=== PATIENT | male | born 1985 | race Hispanic/Latino ===

== ENCOUNTER 2017-12-17 12:55 | Emergency (ER) | payer OTHER ==
[~2017-12-17] VITALS: Ht 185.4 cm; Wt 104.3 kg
--- OUTSIDE RECORDS SUMMARY | 2017-12-17 12:57 | XMS REPORT ---
Author [facility] Address Unknown Phone Unavailable Care Team Providers Care Last Repairer Helper Name Role Phone MARCO JOHNSTON Unavailable Unavailable Problems This patient has no known problems. Allergies, Adverse Reactions, Alerts This patient has no known allergies or adverse reactions. Medications This patient has no known medications. Results Test Description Test Time Test Comments Text Results Atomic Results Result Comments CT BRAIN WO [place] [address] Patient Name: MARLINE WHYTE MR #: [id number] : 1985 Age/Sex: 31/M Req # : [id number] [facility] Physician: Ordered by: MARCO JOHNSTON MD Report #: [id number] Location: ER Room/Bed: Procedure: [id number] CT/CT BRAIN WO Exam Date: 07/11/17 Exam Time: 1006 REPORT STATUS: Signed History:Episodic diplopia, Dizziness Comparison studies: None Technique: Axial images were obtained from the skull base to the vertex. Coronal and sagittal reconstructions obtained from the axial data. Findings: Scalp/skull: No abnormalities. No fractures, blastic or lytic lesions. Extra-axial spaces: No masses. No fluid collections. Brain sulci: Appropriate for age. Ventricles: Normal in size and configuration. No hydrocephalus. Parenchyma: No abnormal densities. No masses, hemorrhage, acute or chronic cortical vascular insults. Sellar/suprasellar region: No abnormalities Craniocervical junction: Patent foramen magnum. No Chiari one malformation. IMPRESSION: No abnormalities . Signed by: DR Simba Delacruz M.D. on 2016 10:37 AM Dictated By: SIMBA GLASER MD [id number] Transcribed By: PARVIN on 07/11/17 1037 COPY TO: MARCO JOHNSTON MD CHEST 2 VIEWS [place] [address] Patient Name: MARLINE WHYTE MR #: [id number] : 1985 Age/Sex: 31/M Req # : [id number] Adm Physician: Ordered by: MARCO JOHNSTON MD Report #: [id number] Location: ER Room/Bed: Procedure: [id number] DX/CHEST 2 VIEWS Exam Date: 07/11/17 Exam Time: 0815 REPORT STATUS: Signed PROCEDURE: X-RAY CHEST, TWO VIEWS COMPARISON: 06/29/2016 INDICATIONS: CHEST PAIN FINDINGS: The lungs are well-inflated. No focal airspace consolidation, pleural effusion, or pneumothorax. Cardiomediastinal contour and pulmonary vasculature are within normal limits. No acute osseous abnormality. CONCLUSION: No acute thoracic abnormality. Dictated by: Edward Richardson M.D. on 2016 at 9:08 Electronically approved by: Edward Richardson M.D. on 07/11/2017 at 9:08 Dictated By: EDWARD RICHARDSON MD 0908 Transcribed By: TIMOTEO on 07/11/17 0908 COPY TO: MARCO JOHNSTON MD
[2017-12-17 14:06] LABS: BASOPHILS % 0.6 % (0.0-1.0); EOSINOPHILS # (AUTO) 0.3 (0.0-0.4); EOSINOPHILS % 4.9 % (0.0-6.0); HEMATOCRIT 47.5 % (38.2-49.6); HEMOGLOBIN 16.3 g/dL (14.0-18.0); LYMPHOCYTES # (AUTO) 1.6 (1.0-3.2); LYMPHOCYTES % 24.6 % (18.0-39.1); MEAN CORPUSCULAR HEMOGLOBIN 31.2 pg (28-32); MEAN CORPUSCULAR HGB CONC 34.3 g/dL (31-35); MONOCYTES # (AUTO) 0.4 (0.2-0.8); MONOCYTES % 6.3 % (4.4-11.3); PLATELET COUNT 196 x10e3/uL (140-360); RED BLOOD COUNT 5.22 x10e6/uL (4.3-5.7); RED CELL DISTRIBUTION WIDTH 12.8 % (11.7-14.4)
[2017-12-17 14:24] LABS: ALANINE AMINOTRANSFERASE 105 IU/L (0-55); ALKALINE PHOSPHATASE 68 IU/L (40-150); ANION GAP 13.2 mmol/L (8-16); BLOOD UREA NITROGEN 8 mg/dL (7-26); BUN/CREATININE RATIO 9 (6-25); CALCIUM 9.3 mg/dL (8.4-10.2); CARBON DIOXIDE 25 mmol/L (22-29); CHLORIDE 107 mmol/L (98-107); CREATININE, SERUM 0.86 mg/dL (0.72-1.25); EST GLOMERULAR FILTRATION RATE > 60 ML/MIN (60-); GLUCOSE 93 mg/dL (74-118); POTASSIUM 4.2 mmol/L (3.5-5.1); SODIUM 141 mmol/L (136-145)
[2017-12-17 14:56] LABS: BILIRUBIN,URINE NEGATIVE (NEGATIVE); COLOR,URINE YELLOW (YELLOW); KETONES,URINE NEGATIVE (NEGATIVE); LEUKOCYTE ESTERASE ,URINE NEGATIVE (NEGATIVE); NITRITE,URINE NEGATIVE (NEGATIVE); PROTEIN,URINE DIPSTICK NEGATIVE (NEGATIVE); URINE UROBILINOGEN 0.2 mg/dL (0.2 - 1)
[2017-12-17 14:57] LABS: CLARITY,URINE SL CLOUDY (CLEAR)
== END 2017-12-17 16:00 | disposition home or self-care (01) ==
LOC: ER 12:55
DX: R10.33 Periumbilical pain (principal); I10 Essential (primary) hypertension
CPT/HCPCS: 36415; 80053; 81001; 85025; 99283

== ENCOUNTER → 2017-12-28 | Day surgery (SDC) | payer OTHER ==
[2017-12-27 15:48] LABS: BASOPHILS % 0.5 % (0.0-1.0); EOSINOPHILS # (AUTO) 0.3 (0.0-0.4); EOSINOPHILS % 3.7 % (0.0-6.0); HEMATOCRIT 44.8 % (38.2-49.6); HEMOGLOBIN 15.6 g/dL (14.0-18.0); LYMPHOCYTES # (AUTO) 1.5 (1.0-3.2); MEAN CORPUSCULAR HEMOGLOBIN 31.1 pg (28-32); MEAN CORPUSCULAR HGB CONC 34.8 g/dL (31-35); MEAN CORPUSCULAR VOLUME 89.4 fL (81-99); MONOCYTES # (AUTO) 0.6 (0.2-0.8); MONOCYTES % 7.3 % (4.4-11.3); NEUTROPHILS # (AUTO) 5.7 (2.1-6.9); PLATELET COUNT 161 x10e3/uL (140-360); RED BLOOD COUNT 5.01 x10e6/uL (4.3-5.7); RED CELL DISTRIBUTION WIDTH 12.7 % (11.7-14.4)
[~2017-12-28] MED LIST: BUPIVACAINE 0.25%/EPI 30ML SDV INJ ONE; DEXAMETHASONE SOD PHOS INJ 4 MG/ML VIAL ONE; FENTANYL CITRATE/PF 100MCG/2 ML INJ ONE; FLECTOR1 EACH PO; GLYCOPYRROLATE INJ 1MG/ 5 ML SYR ONE; HYDROMORPHONE 1MG/1ML INJ ONE; LIDOCAINE HCL 2% LOCAL INJ 5 ML SDV VIAL INJ ONE; MIDAZOLAM HCL 2 MG/2 ML VIAL ONE; NEOSTIGMINE 5 MG/5ML SYR ONE; ONDANSETRON HCL INJ 2 MG/ML VIAL ONE; PROPOFOL IV EMULSION 10 MG/ML 20 ML VIAL ONE; ROCURONIUM BROMIDE 10 MG/ML 5ML VIAL ONE; SEVOFLURANE INHAL SOLN 250 ML PEN BTL ONE; TIZANIDINE HCL4 M1 PO; ULTRAM50 MG PO
--- OUTSIDE RECORDS SUMMARY | 2017-12-28 11:40 | XMS REPORT | Continuity of Care Document ---
Author Author [facility] Organization [facility] Address [address] [place] [address] Phone Unavailable Care Team Providers Care Web Services Developer Name Role Phone KATALINA RITCHIE PCP Insurance Providers Guarantor [employer] Address [address] [place] [address] Payer Aet Hmo Policy Number [id number] Subscriber's Name ZevDulce Tai Relationship 01 Group Number [id number] Group Name [facility] Effective Date 16 Advance Directives Directive Response Recorded Date/Time Does the patient have an advance directive? No 06/29/16 5:47pm If yes, is advance directive on file with [facility]? No 06/29/16 5:47pm If not on file with [facility] will patient provide a copy? No 12/17/17 1:26pm Do you have a Directive to Physician? No 12/17/17 1:26pm Do you have a Medical Power of Sugar Refiner? No 12/17/17 1:26pm Do you have an out of hospital Do Not Resuscitate Order? No 12/17/17 1:26pm Do you have any special needs we should be aware of? No 12/17/17 1:26pm Do you have a support person here with you today? Yes 12/17/17 1:26pm Did patient receive Notice of Privacy Practices? Yes 12/17/17 1:26pm Did patient receive patient rights and responsibilities? Yes 12/17/17 1:26pm Problems Medical Problem Onset Date Status Chest pain Unknown Acute Pharyngitis Unknown Acute Medications No known medications. Social History No social history information available. Hospital Discharge Instructions No hospital discharge instruction information available. Plan of Care Discharge Date 12/17/17 4:00pm Disposition HOME, SELF-CARE Condition at Discharge Stable Instructions/Education Provided Hiatal Hernia Forms Provided Work/School Excuse Prescriptions See Medication Section Referrals KATALINA RITCHIE Address: [address] [place] [address] [place] [id number] Functional Status No functional status information available. Allergies, Adverse Reactions, Alerts No known allergies. Immunizations No immunization information available. Vital Signs Acute Vital Signs Vital Response Date/Time Pulse Pulse Rate (adult) 71 bpm (60 - 90) 07/11/2017 11:49am Respiratory Rate 17 bpm (12 - 24) 07/11/2017 11:49am Blood Pressure 140/97 mm Hg 07/11/2017 11:49am Height 6 ft 1 in 12/17/2017 1:10pm Weight 230 lb 12/17/2017 1:10pm Body Mass Index 30.3 kg/m^2 12/17/2017 1:10pm Results Laboratory Results Test Name Result Units Flags Reference Collection Date/Time Result Date/ Time Comments Bedside Glucose 96 mg/dL 70-120 07/11/2017 8:30am 07/11/2017 8:39am Meter ID: [id number] B-Type Natriuretic Peptide < 5.0 pg/mL 0-100 07/11/2017 8:25am 2016 9:08am Creatine Kinase 292 IU/L H 30-200 07/11/2017 8:25am 07/11/2017 9:09am Creatine Kinase MB 3.10 ng/mL 0.00-5.00 07/11/2017 8:25am 07/11/2017 9: 09am Troponin I 0.001 ng/mL 0-0.300 07/11/2017 8:25am 07/11/2017 9:09am White Blood Count 6.35 x10e3/uL 4.8-10.8 12/17/2017 1:38pm 12/17/2017 2 :09pm Red Blood Count 5.22 x10e6/uL 4.3-5.7 12/17/2017 1:38pm 12/17/2017 2: 09pm Hemoglobin 16.3 g/dL 14.0-18.0 12/17/2017 1:38pm 12/17/2017 2:09pm Hematocrit 47.5 % 38.2-49.6 12/17/2017 1:38pm 12/17/2017 2:09pm Mean Corpuscular Volume 91.0 fL 81-99 12/17/2017 1:38pm 12/17/2017 2: 09pm Mean Corpuscular Hemoglobin 31.2 pg 28-32 12/17/2017 1:38pm 12/17/2017 2:09pm Mean Corpuscular Hemoglobin Concent 34.3 g/dL 31-35 12/17/2017 1:38pm 12/17/2017 2:09pm Red Cell Distribution Width 12.8 % 11.7-14.4 12/17/2017 1:38pm 2017 2:09pm Platelet Count 196 x10e3/uL 140-360 12/17/2017 1:38pm 12/17/2017 2: 09pm Neutrophils (%) (Auto) 63.0 % 38.7-80.0 12/17/2017 1:38pm 12/17/2017 2: 09pm Lymphocytes (%) (Auto) 24.6 % 18.0-39.1 12/17/2017 1:38pm 12/17/2017 2: 09pm Monocytes (%) (Auto) 6.3 % 4.4-11.3 12/17/2017 1:38pm 12/17/2017 2: 09pm Eosinophils (%) (Auto) 4.9 % 0.0-6.0 12/17/2017 1:38pm 12/17/2017 2: 09pm Basophils (%) (Auto) 0.6 % 0.0-1.0 12/17/2017 1:38pm 12/17/2017 2:09pm IM GRANULOCYTES % 0.6 % 0.0-1.0 12/17/2017 1:38pm 12/17/2017 2:09pm Neutrophils # (Auto) 4.0 2.1-6.9 12/17/2017 1:38pm 12/17/2017 2:09pm Lymphocytes # (Auto) 1.6 1.0-3.2 12/17/2017 1:38pm 12/17/2017 2:09pm Monocytes # (Auto) 0.4 0.2-0.8 12/17/2017 1:38pm 12/17/2017 2:09pm Eosinophils # (Auto) 0.3 0.0-0.4 12/17/2017 1:38pm 12/17/2017 2:09pm Basophils # (Auto) 0.0 0.0-0.1 12/17/2017 1:38pm 12/17/2017 2:09pm Absolute Immature Granulocyte (auto 0.04 x10e3/uL 0-0.1 12/17/2017 1: 38pm 12/17/2017 2:09pm Urine Color YELLOW YELLOW 12/17/2017 1:10pm 12/17/2017 2:57pm Urine Clarity SL CLOUDY H CLEAR 12/17/2017 1:10pm 12/17/2017 2:57pm Urine Specific Lynn 1.015 1.010-1.025 12/17/2017 1:10pm 2017 2:57pm Urine pH 8 H 5 - 7 12/17/2017 1:10pm 12/17/2017 2:57pm Urine Leukocyte Esterase NEGATIVE NEGATIVE 12/17/2017 1:10pm 2017 2:57pm Urine Nitrite NEGATIVE NEGATIVE 12/17/2017 1:10pm 12/17/2017 2:57pm Urine Protein NEGATIVE NEGATIVE 12/17/2017 1:10pm 12/17/2017 2:57pm Urine Glucose (UA) NEGATIVE NEGATIVE 12/17/2017 1:10pm 12/17/2017 2: 57pm Urine Ketones NEGATIVE NEGATIVE 12/17/2017 1:10pm 12/17/2017 2:57pm Urine Urobilinogen 0.2 mg/dL 0.2 - 1 12/17/2017 1:10pm 12/17/2017 2: 57pm Urine Bilirubin NEGATIVE NEGATIVE 12/17/2017 1:10pm 12/17/2017 2: 57pm Urine Blood NEGATIVE NEGATIVE 12/17/2017 1:10pm 12/17/2017 2:57pm Urine WBC NONE /HPF 0-5 12/17/2017 1:10pm 12/17/2017 3:09pm Urine RBC NONE /HPF 0-5 12/17/2017 1:10pm 12/17/2017 3:09pm Urine Bacteria NONE /HPF NONE 12/17/2017 1:10pm 12/17/2017 3:09pm Urine Epithelial Cells NONE /LPF NONE 12/17/2017 1:1012/17/2017 3: 09pm Sodium Level 141 mmol/L 136-145 12/17/2017 1:38pm 12/17/2017 2:25pm Potassium Level 4.2 mmol/L 3.5-5.1 12/17/2017 1:38pm 12/17/2017 2:25pm Chloride Level 107 mmol/L 98-107 12/17/2017 1:38pm 12/17/2017 2:25pm Carbon Dioxide Level 25 mmol/L 22-29 12/17/2017 1:38pm 12/17/2017 2: 25pm Anion Gap 13.2 mmol/L 8-16 12/17/2017 1:38pm 12/17/2017 2:25pm Blood Urea Nitrogen 8 mg/dL 7-26 12/17/2017 1:38pm 12/17/2017 2:25pm Creatinine 0.86 mg/dL 0.72-1.25 12/17/2017 1:38pm 12/17/2017 2:25pm BUN/Creatinine Ratio 9 6-25 12/17/2017 1:38pm 12/17/2017 2:25pm Estimat Glomerular Filtration Rate > 60 ML/MIN 60- 12/17/2017 1:38pm 2:25pm Ranges were taken from the National Kidney Disease Education Program and the National Kid[employer] literature. Reference ranges: 60 or greater: Normal 16-59 (for 3 consecutive months): Chronic kidney disease 15 or less: Kidney failure Glucose Level 93 mg/dL 74-118 12/17/2017 1:38pm 12/17/2017 2:25pm Calcium Level 9.3 mg/dL 8.4-10.2 12/17/2017 1:38pm 12/17/2017 2:25pm Total Bilirubin 0.7 mg/dL 0.2-1.2 12/17/2017 1:38pm 12/17/2017 2:25pm Aspartate Amino Transf (AST/SGOT) 67 IU/L H 5-34 12/17/2017 1:38pm 12/17 2:25pm Alanine Aminotransferase (ALT/SGPT) 105 IU/L H 0-55 12/17/2017 1:38pm 2:25pm Total Protein 7.9 g/dL 6.5-8.1 12/17/2017 1:38pm 12/17/2017 2:25pm Albumin 4.0 g/dL 3.5-5.0 12/17/2017 1:38pm 12/17/2017 2:25pm Globulin 3.9 g/dL H 2.3-3.5 12/17/2017 1:38pm 12/17/2017 2:25pm Albumin/Globulin Ratio 1.0 0.8-2.0 12/17/2017 1:38pm 12/17/2017 2: 25pm Alkaline Phosphatase 68 IU/L 40-150 12/17/2017 1:38pm 12/17/2017 2: 25pm Procedures Procedure Status Date Provider(s) X-ray of chest, two views Active 07/11/17 MARCO JOHNSTON MD Computed tomography of brain without radiopaque contrast Active 07/11/17 MARCO JOHNSTON MD Encounters Encounter Location Arrival/Admit Date Discharge/Depart Date Attending Provider Departed Emergency Room [facility] 12/17/17 12:55pm 12/17 4:00pm MARCO JOHNSTON MD Departed Emergency Room [facility] 07/11/17 8:14am 11:50am MARCO JOHNSTON MD
--- NOTE | 2017-12-28 18:07 | Operative Report ---
DATE OF PROCEDURE: December 28, 2017 PREOPERATIVE DIAGNOSIS: Incarcerated umbilical hernia. POSTOPERATIVE DIAGNOSIS: Incarcerated umbilical hernia. OPERATION PERFORMED: Repair of incarcerated umbilical hernia with Ventralex patch. OFFICE SERVICES COORDINATOR: SHARRON Calderon. ANESTHESIA: General. COMPLICATIONS: None. ESTIMATED BLOOD LOSS: Minimal. DESCRIPTION OF PROCEDURE: With the patient lying in bed in the supine position under good general endotracheal anesthesia, the abdomen was prepped with Betadine solution and draped in the usual manner. A semilunar subumbilical incision was made. Was carried down through the subcutaneous tissue down to the midline fascia. The fascia was then dissected circumferentially and the hernia sac was then from the umbilicus. The hernia sac was opened. Contained within the hernia sac was some preperitoneal fat, a piece of which was incarcerated but appeared to have twisted and was partially necrotic and this was resected. After this was done, the whole area was inspected for bleeding and there was none and a medium-sized Ventralex patch was placed intra-abdominally and the defect was then closed transversely using interrupted sutures of 0 Ethibond anchoring the mesh on the way out. The whole area was thoroughly irrigated. Perfect hemostasis was ascertained. The fascia was then infiltrated with 1/4 percent Marcaine. The umbilicus was then tacked back down to the midline fascia with 3-0 Vicryl. The subcutaneous tissue was approximated with 3-0 Vicryl and the skin was closed with interrupted vertical mattress sutures of 3-0 silk. Dressing was applied. The sponge, lap and needle count was correct. Patient tolerated the procedure well and returned to the recovery room in stable condition. Job#: [id number]
== END | disposition home or self-care (01) ==
LOC: OR 11:38
PROVIDERS: ATTEND Surgery
DX: K42.0 Umbilical hernia with obstruction, without gangrene (principal); M54.9 Dorsalgia, unspecified; R06.02 Shortness of breath; F17.210 Nicotine dependence, cigarettes, uncomplicated; Z01.810 Encounter for preprocedural cardiovascular examination; Z01.812 Encounter for preprocedural laboratory examination; Z68.42 Body mass index [BMI] 45.0-49.9, adult
CPT/HCPCS: 36415; 49587; 85025; 93005; C1781; J1100; J1170; J2001; J2250; J2405

== ENCOUNTER 2018-10-15 12:47 | Emergency (ER) | payer OTHER ==
[~2018-10-15] VITALS: Ht 185.4 cm; Wt 104.3 kg
[~2018-10-15 12:47] MED LIST changes: -BUPIVACAINE 0.25%/EPI 30ML SDV INJ ONE; -DEXAMETHASONE SOD PHOS INJ 4 MG/ML VIAL ONE; -FENTANYL CITRATE/PF 100MCG/2 ML INJ ONE; -GLYCOPYRROLATE INJ 1MG/ 5 ML SYR ONE; -HYDROMORPHONE 1MG/1ML INJ ONE; -LIDOCAINE HCL 2% LOCAL INJ 5 ML SDV VIAL INJ ONE; -MIDAZOLAM HCL 2 MG/2 ML VIAL ONE; -NEOSTIGMINE 5 MG/5ML SYR ONE; -ONDANSETRON HCL INJ 2 MG/ML VIAL ONE; -PROPOFOL IV EMULSION 10 MG/ML 20 ML VIAL ONE; -ROCURONIUM BROMIDE 10 MG/ML 5ML VIAL ONE; -SEVOFLURANE INHAL SOLN 250 ML PEN BTL ONE
[2018-10-15] MEDS ORDERED: ASPIRIN 81 MG CHEW TAB PO ONE (13:15)
[2018-10-15 13:18] LABS: BASOPHILS % 0.3 % (0.0-1.0); EOSINOPHILS # (AUTO) 0.2 (0.0-0.4); EOSINOPHILS % 3.2 % (0.0-6.0); HEMATOCRIT 46.2 % (38.2-49.6); LYMPHOCYTES # (AUTO) 1.3 (1.0-3.2); LYMPHOCYTES % 20.4 % (18.0-39.1); MEAN CORPUSCULAR HEMOGLOBIN 30.9 pg (28-32); MEAN CORPUSCULAR HGB CONC 34.6 g/dL (31-35); MEAN CORPUSCULAR VOLUME 89.4 fL (81-99); MONOCYTES # (AUTO) 0.5 (0.2-0.8); NEUTROPHILS # (AUTO) 4.5 (2.1-6.9); NEUTROPHILS % 68.9 % (38.7-80.0); PLATELET COUNT 179 x10e3/uL (140-360); RED BLOOD COUNT 5.17 x10e6/uL (4.3-5.7); RED CELL DISTRIBUTION WIDTH 12.5 % (11.7-14.4)
[2018-10-15 13:29] LABS: INR 0.87; PROTHROMBIN TIME 12.7 seconds (11.9-14.5)
[2018-10-15 13:30] LABS: PARTIAL THROMBOPLASTIN TIME 27.3 seconds (23.8-35.5)
[2018-10-15 13:36] LABS: ALANINE AMINOTRANSFERASE 92 IU/L (0-55); ALKALINE PHOSPHATASE 53 IU/L (40-150); ANION GAP 13.9 mmol/L (8-16); BLOOD UREA NITROGEN 11 mg/dL (7-26); BUN/CREATININE RATIO 12 (6-25); CALCIUM 9.4 mg/dL (8.4-10.2); CARBON DIOXIDE 24 mmol/L (22-29); CHLORIDE 105 mmol/L (98-107); CREATINE KINASE 172 IU/L (30-200); CREATININE, SERUM 0.93 mg/dL (0.72-1.25); EST GLOMERULAR FILTRATION RATE > 60 ML/MIN (60-); GLUCOSE 102 mg/dL (74-118); POTASSIUM 3.9 mmol/L (3.5-5.1); SODIUM 139 mmol/L (136-145)
--- NOTE | 2018-10-15 14:34 | Diagnostic Imaging Report ---
EXAMINATION: CHEST SINGLE (NOT PORTABLE) INDICATION: ^CHEST PAIN ^[id number] ^1350 ^Y COMPARISON: 07/11/2017 FINDINGS: AP view TUBES and LINES: None. LUNGS: Lungs are well inflated. There is no evidence of pneumonia or pulmonary edema. PLEURA: No pleural effusion or pneumothorax. HEART AND MEDIASTINUM: The cardiomediastinal silhouette is unremarkable. BONES AND SOFT TISSUES: No acute osseous lesion. Soft tissues are unremarkable. UPPER ABDOMEN: No free air under the diaphragm. IMPRESSION: No acute thoracic abnormality. Signed by: Dr. Ángel Ch MD on 10/15/2018 2:31 PM
[2018-10-15] MEDS ORDERED: LOSARTAN POTASSIUM 100 MG TAB PO ONE (16:45)
[2018-10-15] MEDS ORDERED: HYDROCHLOROTHIAZIDE 25 MG TAB PO ONE (16:45)
[2018-10-15 17:48] VITALS: BP_SYST 155
== END 2018-10-15 17:52 | disposition home or self-care (01) ==
LOC: ER 12:47
DX: R07.89 Other chest pain (principal); I10 Essential (primary) hypertension
CPT/HCPCS: 36415; 71045; 80053; 82550; 82553; 83880; 84484; 85025; 85610; 85730; 93005; 99284

== ENCOUNTER 2022-04-27 10:40 | Emergency (ER) | payer OTHER ==
[~2022-04-27] VITALS: Ht 185.4 cm; Wt 104.3 kg
[2022-04-27] MEDS ORDERED: ASPIRIN 81 MG CHEW TAB PO ONE (11:00)
[2022-04-27 11:10] LABS: BASOPHILS % 0.8 % (0.0-1.0); EOSINOPHILS # (AUTO) 0.3 (0.0-0.4); EOSINOPHILS % 5.6 % (0.0-6.0); HEMATOCRIT 50.7 % (38.2-49.6); LYMPHOCYTES # (AUTO) 1.2 (1.0-3.2); LYMPHOCYTES % 23.5 % (18.0-39.1); MEAN CORPUSCULAR HEMOGLOBIN 30.9 pg (28-32); MEAN CORPUSCULAR HGB CONC 33.5 g/dL (31-35); MEAN CORPUSCULAR VOLUME 92.2 fL (81-99); MONOCYTES # (AUTO) 0.4 (0.2-0.8); MONOCYTES % 7.6 % (4.4-11.3); NEUTROPHILS # (AUTO) 3.1 (2.1-6.9); NEUTROPHILS % 62.3 % (38.7-80.0); PLATELET COUNT 156 x10e3/uL (140-360); RED CELL DISTRIBUTION WIDTH 14.6 % (11.7-14.4)
[2022-04-27 11:41] LABS: LIPASE 40 U/L (8-78)
[2022-04-27 11:45] LABS: ALBUMIN 3.6 g/dL (3.5-5.0); ALBUMIN/GLOBULIN RATIO 0.9 (0.8-2.0); CALCIUM 7.9 mg/dL (8.4-10.2); CREATININE, SERUM 0.91 mg/dL (0.72-1.25)
[2022-04-27 13:23] VITALS: BP 129/94
== END 2022-04-27 13:26 | disposition home or self-care (01) ==
LOC: ER 10:46
DX: R07.89 Other chest pain (principal); R06.02 Shortness of breath; M54.50 Low back pain, unspecified; I10 Essential (primary) hypertension; R94.31 Abnormal electrocardiogram [ECG] [EKG]
CPT/HCPCS: 36415; 71045; 80053; 83690; 84484; 85025; 93005; 99284

== ENCOUNTER 2022-10-27 11:42 | Inpatient (IN) | payer SELFPAY ==
[~2022-10-27] VITALS: Ht 185.4 cm; Wt 179.2 kg
[2022-10-27 12:15] LABS: BASOPHILS % 0.1 % (0.0-1.0); EOSINOPHILS % 0.2 % (0.0-6.0); HEMOGLOBIN 14.3 g/dL (14.0-18.0); LYMPHOCYTES # (AUTO) 0.8 (1.0-3.2); LYMPHOCYTES % 8.8 % (18.0-39.1); MEAN CORPUSCULAR HEMOGLOBIN 32.3 pg (28-32); MEAN CORPUSCULAR HGB CONC 32.5 g/dL (31-35); MEAN CORPUSCULAR VOLUME 99.3 fL (81-99); MONOCYTES # (AUTO) 0.6 (0.2-0.8); MONOCYTES % 6.1 % (4.4-11.3); NEUTROPHILS # (AUTO) 7.6 (2.1-6.9); NEUTROPHILS % 84.4 % (38.7-80.0); PLATELET COUNT 141 x10e3/uL (140-360); RED BLOOD COUNT 4.43 x10e6/uL (4.3-5.7); RED CELL DISTRIBUTION WIDTH 12.9 % (11.7-14.4)
[2022-10-27] MEDS ORDERED: SODIUM CHLORIDE 0.9% 1000ML 1,000 ML IV ONE ×2 (12:15)
[2022-10-27 12:26] LABS: INR 1.13; PROTHROMBIN TIME 14.7 seconds (11.9-14.5)
[2022-10-27] MEDS ORDERED: ONDANSETRON HCL INJ 2MG/ML 2ML 2 MG/ML VIAL IV PRN ×2 (12:30→15:15)
[2022-10-27] MEDS ORDERED: PIPERACILLIN/TAZOBACTAM 4.5 GM in SODIUM CHLORIDE 0.9% 100 ML IV ONE (12:30)
[2022-10-27] MEDS ORDERED: ACETAMINOPHEN 325 MG TAB PO ONE (12:30)
[2022-10-27] MEDS ORDERED: Morphine 4mg INJECTION 4 MG/ML INJ IV ONE (12:30)
[2022-10-27 12:33] LABS: ALBUMIN 3.1 g/dL (3.5-5.0); ALBUMIN/GLOBULIN RATIO 0.8 (0.8-2.0); ANION GAP 14.5 mmol/L (8-16); CALCIUM 8.3 mg/dL (8.4-10.2); CREATININE, SERUM 0.83 mg/dL (0.72-1.25); POTASSIUM 3.5 mmol/L (3.5-5.1)
[2022-10-27] MEDS ORDERED: IOPAMIDOL 370 MG/ML 100 ML INFUS..BTL INJ ONE (13:05)
[2022-10-27 13:40] LABS: COLOR,URINE ORANGE (YELLOW)
[2022-10-27 13:41] LABS: CLARITY,URINE CLEAR (CLEAR); KETONES,URINE TRACE (NEGATIVE); LEUKOCYTE ESTERASE ,URINE NEGATIVE (NEGATIVE); NITRITE,URINE NEGATIVE (NEGATIVE); PROTEIN,URINE DIPSTICK 1+ (NEGATIVE)
[2022-10-27 13:42] LABS: URINE UROBILINOGEN >=8 mg/dL (0.2 - 1)
[2022-10-27 13:43] LABS: BACTERIA,URINE MODERATE /HPF; EPITHELIAL CELLS,URINE FEW /LPF; RBC,URINE 0-5 /HPF (0-5); WBC,URINE (MAN) 0-5 /HPF (0-5)
[2022-10-27 13:44] LABS: MUCUS,URINE FEW (RARE)
[2022-10-27] MEDS: Morphine 4mg INJECTION 4 MG/ML INJ IV PRN ×2 (15:40→22:27)
[2022-10-27 16:27] VITALS: BP 155/96
[2022-10-27 16:40] VITALS: BP 155/96
[2022-10-27] MEDS: SODIUM CHLORIDE 0.9% 1000ML 1,000 ML IV SCH (16:52)
[2022-10-27] MEDS: ACETAMINOPHEN 325 MG TAB PO PRN (17:20)
[2022-10-27] MEDS ORDERED: FENTANYL CITRATE/PF 100MCG/2 ML INJ ONE (18:14)
[2022-10-27] MEDS ORDERED: MIDAZOLAM HCL 2 MG/2 ML VIAL ONE (18:14)
[2022-10-27] MEDS ORDERED: ATROPINE SULFATE 1 MG/ML VIAL ONE (19:34)
[2022-10-27] MEDS ORDERED: POVIDONE IODINE 0.05% 0.05 % ML PO ONE (19:34)
[2022-10-27] MEDS ORDERED: ROCURONIUM BROMIDE 10 MG/ML 5ML VIAL IV ONE (19:34)
[2022-10-27] MEDS ORDERED: NEOSTIGMINE 1 MG/ML 10ML VIAL ONE (19:34)
[2022-10-27] MEDS ORDERED: SUGAMMADEX SODIUM 200 MG/2 ML VIAL IV ONE (19:34)
[2022-10-27] MEDS ORDERED: KETOROLAC TROMETHAMINE 30 MG/ML VIAL ONE (19:34)
[2022-10-27] MEDS ORDERED: SEVOFLURANE INHAL SOLN 250 ML PEN BTL ONE (19:34)
[2022-10-27] MEDS ORDERED: DEXAMETHASONE SOD PHOS INJ 4 MG/ML SDV ONE (19:34)
[2022-10-27] MEDS ORDERED: PROPOFOL IV EMULSION 10 MG/ML 20 ML VIAL ONE (19:34)
[2022-10-27] MEDS ORDERED: ONDANSETRON HCL INJ 2MG/ML 2ML 2 MG/ML VIAL ONE (19:34)
[2022-10-27] MEDS ORDERED: SUCCINYLCHOLINE CHLORIDE 20 MG/ML 10ML VIAL ONE (19:34)
[2022-10-27] MEDS: LORAZEPAM INJ 2 MG/ML VIAL IV PRN (19:58)
[2022-10-27] MEDS: KETOROLAC TROMETHAMINE 30 MG/ML VIAL IV PRN (19:58)
[2022-10-27 20:00] VITALS: BP 104/65
[2022-10-27 23:39] VITALS: BP 104/65
[2022-10-28] VITALS (7 sets, daily range): BP systolic 100–163; BP diastolic 57–85
[2022-10-28] MEDS: SODIUM CHLORIDE 0.9% 1000ML 1,000 ML IV SCH (00:39)
[2022-10-28] MEDS: ACETAMINOPHEN 325 MG TAB PO PRN (00:44)
[2022-10-28 05:54] LABS: BASOPHILS % 0.3 % (0.0-1.0); EOSINOPHILS % 0.1 % (0.0-6.0); HEMATOCRIT 39.3 % (38.2-49.6); HEMOGLOBIN 12.5 g/dL (14.0-18.0); LYMPHOCYTES # (AUTO) 0.7 (1.0-3.2); LYMPHOCYTES % 10.1 % (18.0-39.1); MEAN CORPUSCULAR HEMOGLOBIN 32.4 pg (28-32); MEAN CORPUSCULAR HGB CONC 31.8 g/dL (31-35); MEAN CORPUSCULAR VOLUME 101.8 fL (81-99); MONOCYTES # (AUTO) 0.6 (0.2-0.8); NEUTROPHILS # (AUTO) 5.7 (2.1-6.9); NEUTROPHILS % 80.8 % (38.7-80.0); PLATELET COUNT 118 x10e3/uL (140-360); RED BLOOD COUNT 3.86 x10e6/uL (4.3-5.7); RED CELL DISTRIBUTION WIDTH 13.2 % (11.7-14.4)
[2022-10-28] MEDS: Morphine 4mg INJECTION 4 MG/ML INJ IV PRN ×3 (06:01→18:30)
[2022-10-28 06:15] LABS: ALBUMIN 2.8 g/dL (3.5-5.0); ALBUMIN/GLOBULIN RATIO 0.7 (0.8-2.0); ANION GAP 13.4 mmol/L (8-16); CALCIUM 8.1 mg/dL (8.4-10.2); CREATININE, SERUM 0.94 mg/dL (0.72-1.25); POTASSIUM 3.4 mmol/L (3.5-5.1)
[2022-10-28] MEDS ORDERED: BUPIVACAINE HCL 0.5% INJ 30 ML VIAL INJ ONE (08:12)
[2022-10-28] MEDS ORDERED: ONDANSETRON HCL INJ 2MG/ML 2ML 2 MG/ML VIAL IV PRN (08:45)
[2022-10-28] MEDS ORDERED: ACETAMINOPHEN 325 MG TAB PO PRN (08:45)
[2022-10-28] MEDS ORDERED: SUGAMMADEX SODIUM 200 MG/2 ML VIAL IV ONE (08:51)
[2022-10-28] MEDS ORDERED: POTASSIUM CHLORIDE 10MEQ EA PO NR (11:45)
[2022-10-28] MEDS: KETOROLAC TROMETHAMINE 30 MG/ML VIAL IV PRN (16:30)
[2022-10-28] MEDS ORDERED: HYDROMORPHONE 1MG/1ML INJ IV STA (21:26)
[2022-10-28] MEDS: BENZONATATE 100 MG CAP PO PRN (22:00)
[2022-10-29] VITALS (8 sets, daily range): BP systolic 110–135; BP diastolic 65–93
[2022-10-29] MEDS ORDERED: SODIUM CHLORIDE 0.9% 250ML 250 ML ONE (00:18)
[2022-10-29] MEDS: HYDROMORPHONE 1MG/1ML INJ IV PRN ×3 (01:15→16:50)
[2022-10-29 05:45] LABS: BASOPHILS % 0.2 % (0.0-1.0); EOSINOPHILS % 0.5 % (0.0-6.0); HEMATOCRIT 39.7 % (38.2-49.6); HEMOGLOBIN 12.7 g/dL (14.0-18.0); LYMPHOCYTES # (AUTO) 0.6 (1.0-3.2); LYMPHOCYTES % 10.4 % (18.0-39.1); MEAN CORPUSCULAR HEMOGLOBIN 32.3 pg (28-32); MONOCYTES # (AUTO) 0.7 (0.2-0.8); MONOCYTES % 11.8 % (4.4-11.3); NEUTROPHILS # (AUTO) 4.4 (2.1-6.9); NEUTROPHILS % 76.9 % (38.7-80.0); PLATELET COUNT 128 x10e3/uL (140-360); RED BLOOD COUNT 3.93 x10e6/uL (4.3-5.7); RED CELL DISTRIBUTION WIDTH 12.9 % (11.7-14.4)
[2022-10-29 06:01] LABS: ANION GAP 12.7 mmol/L (8-16); CALCIUM 8.3 mg/dL (8.4-10.2); CREATININE, SERUM 0.89 mg/dL (0.72-1.25); POTASSIUM 3.7 mmol/L (3.5-5.1)
[2022-10-29] MEDS: BENZONATATE 100 MG CAP PO PRN ×2 (08:15→17:25)
[2022-10-29] MEDS: HYDROCODONE/APAP 5MG-325MG TAB PO PRN ×2 (11:27→20:05)
[2022-10-30] VITALS (7 sets, daily range): BP systolic 126–152; BP diastolic 69–100
[2022-10-30] MEDS: KETOROLAC TROMETHAMINE 30 MG/ML VIAL IV PRN (00:04)
[2022-10-30] MEDS: HYDROCODONE/APAP 5MG-325MG TAB PO PRN ×3 (05:32→18:03)
[2022-10-30] MEDS: BENZONATATE 100 MG CAP PO PRN (05:41)
[2022-10-30] MEDS: LORAZEPAM INJ 2 MG/ML VIAL IV PRN (05:41)
[2022-10-30 05:46] LABS: BASOPHILS % 0.6 % (0.0-1.0); EOSINOPHILS # (AUTO) 0.1 (0.0-0.4); HEMATOCRIT 44.7 % (38.2-49.6); HEMOGLOBIN 14.9 g/dL (14.0-18.0); LYMPHOCYTES # (AUTO) 0.9 (1.0-3.2); LYMPHOCYTES % 17.7 % (18.0-39.1); MEAN CORPUSCULAR HEMOGLOBIN 32.5 pg (28-32); MEAN CORPUSCULAR HGB CONC 33.3 g/dL (31-35); MONOCYTES # (AUTO) 0.7 (0.2-0.8); MONOCYTES % 13.1 % (4.4-11.3); NEUTROPHILS # (AUTO) 3.4 (2.1-6.9); NEUTROPHILS % 66.8 % (38.7-80.0); PLATELET COUNT 130 x10e3/uL (140-360); RED BLOOD COUNT 4.58 x10e6/uL (4.3-5.7); RED CELL DISTRIBUTION WIDTH 13.6 % (11.7-14.4)
[2022-10-30 05:49] LABS: MEAN CORPUSCULAR VOLUME 97.6 fL (81-99)
[2022-10-30 06:17] LABS: ALBUMIN 2.7 g/dL (3.5-5.0); ALBUMIN/GLOBULIN RATIO 0.6 (0.8-2.0); CALCIUM 8.7 mg/dL (8.4-10.2); CREATININE, SERUM 0.9 mg/dL (0.72-1.25); MAGNESIUM 1.8 MG/DL (1.3-2.1); PHOSPHORUS 3.5 MG/DL (2.3-4.7)
[2022-10-30] MEDS ORDERED: ACETAMIN/BUTALBITAL/CAFFEINE TAB PO ONE (12:00)
[2022-10-30] MEDS ORDERED: ACETAMIN/BUTALBITAL/CAFFEINE TAB PO PRN (12:00)
[2022-10-30] MEDS ORDERED: GUAIFENESIN 600MG/DEXTROMETHORPHAN 30MG TABSR PO SCH (12:00)
[2022-10-30] MEDS: ACETAMINOPHEN 325 MG TAB PO PRN ×2 (14:35→22:32)
[2022-10-30] MEDS ORDERED: CHLORDIAZEPOXIDE HCL 10 MG CAP PO ONE (15:30)
[2022-10-30] MEDS ORDERED: MULTIVITAMINS- 12 INJECTION 10 ML, FOLIC ACID MDV 1 MG, THIAMINE HCL INJ 100 MG in SODI... IV ONE (16:00)
[2022-10-30] MEDS: FAMOTIDINE 20 MG/2 ML VIAL IV SCH (17:55)
[2022-10-30] MEDS: GUAIFENESIN 600MG/DEXTROMETHORPHAN 30MG TABSR PO SCH (18:45)
[2022-10-30] MEDS: CHLORDIAZEPOXIDE HCL 25 MG CAP PO PRN (23:59)
[2022-10-31] VITALS: BP 129/79
[2022-10-31 05:35] LABS: BASOPHILS % 0.1 % (0.0-1.0); EOSINOPHILS # (AUTO) 0.1 (0.0-0.4); EOSINOPHILS % 0.9 % (0.0-6.0); HEMOGLOBIN 12.4 g/dL (14.0-18.0); LYMPHOCYTES # (AUTO) 0.7 (1.0-3.2); LYMPHOCYTES % 9.5 % (18.0-39.1); MEAN CORPUSCULAR HEMOGLOBIN 32.4 pg (28-32); MEAN CORPUSCULAR HGB CONC 31.8 g/dL (31-35); MEAN CORPUSCULAR VOLUME 101.8 fL (81-99); MONOCYTES # (AUTO) 0.8 (0.2-0.8); MONOCYTES % 10.4 % (4.4-11.3); NEUTROPHILS # (AUTO) 6.1 (2.1-6.9); NEUTROPHILS % 78.6 % (38.7-80.0); PLATELET COUNT 155 x10e3/uL (140-360); RED BLOOD COUNT 3.83 x10e6/uL (4.3-5.7); RED CELL DISTRIBUTION WIDTH 13.2 % (11.7-14.4)
[2022-10-31] MEDS: GUAIFENESIN 600MG/DEXTROMETHORPHAN 30MG TABSR PO SCH ×2 (05:42→16:53)
[2022-10-31] MEDS: ACETAMINOPHEN 325 MG TAB PO PRN (05:49)
[2022-10-31 06:12] LABS: ANION GAP 13.7 mmol/L (8-16); CALCIUM 8.3 mg/dL (8.4-10.2); CREATININE, SERUM 0.76 mg/dL (0.72-1.25); POTASSIUM 3.7 mmol/L (3.5-5.1)
[2022-10-31 07:40] VITALS: BP 150/111
[2022-10-31 08:00] VITALS: BP 150/111
[2022-10-31] MEDS: CHLORDIAZEPOXIDE HCL 25 MG CAP PO PRN (08:30)
[2022-10-31] MEDS: FAMOTIDINE 20 MG/2 ML VIAL IV SCH ×2 (08:35→16:52)
[2022-10-31 11:14] VITALS: BP 136/89
[2022-10-31] MEDS ORDERED: MULTIVITAMINS- 12 INJECTION 10 ML, FOLIC ACID MDV 1 MG, THIAMINE HCL INJ 100 MG in SODI... IV ONE (14:00)
[2022-10-31 15:51] VITALS: BP 141/87
[2022-10-31 20:00] VITALS: BP 131/83
[2022-10-31] MEDS: HYDROCODONE/APAP 5MG-325MG TAB PO PRN (23:42)
[2022-11-01] VITALS (7 sets, daily range): BP systolic 120–155; BP diastolic 74–92
[2022-11-01] MEDS: GUAIFENESIN 600MG/DEXTROMETHORPHAN 30MG TABSR PO SCH ×2 (05:10→17:10)
[2022-11-01] MEDS: HYDROCODONE/APAP 5MG-325MG TAB PO PRN ×5 (05:14→22:28)
[2022-11-01] MEDS: FAMOTIDINE 20 MG/2 ML VIAL IV SCH ×2 (09:02→17:10)
[2022-11-01] MEDS ORDERED: MULTIVITAMINS- 12 INJECTION 10 ML, FOLIC ACID MDV 1 MG, THIAMINE HCL INJ 100 MG in SODI... IV ONE (14:00)
[2022-11-01] MEDS: ACETAMINOPHEN 325 MG TAB PO PRN (20:11)
[2022-11-02] VITALS (7 sets, daily range): BP systolic 107–136; BP diastolic 70–97
[2022-11-02] MEDS: LORAZEPAM INJ 2 MG/ML VIAL IV PRN ×2 (04:34→21:09)
[2022-11-02] MEDS: GUAIFENESIN 600MG/DEXTROMETHORPHAN 30MG TABSR PO SCH ×2 (04:34→17:58)
[2022-11-02] MEDS: HYDROCODONE/APAP 5MG-325MG TAB PO PRN ×3 (04:34→22:08)
[2022-11-02 05:34] LABS: BASOPHILS # (AUTO) 0.1 (0.0-0.1); BASOPHILS % 0.7 % (0.0-1.0); EOSINOPHILS # (AUTO) 0.2 (0.0-0.4); EOSINOPHILS % 2.4 % (0.0-6.0); HEMATOCRIT 35.1 % (38.2-49.6); HEMOGLOBIN 11.9 g/dL (14.0-18.0); LYMPHOCYTES # (AUTO) 0.7 (1.0-3.2); LYMPHOCYTES % 10.8 % (18.0-39.1); MEAN CORPUSCULAR HEMOGLOBIN 32.3 pg (28-32); MEAN CORPUSCULAR HGB CONC 33.9 g/dL (31-35); MEAN CORPUSCULAR VOLUME 95.4 fL (81-99); MONOCYTES # (AUTO) 0.8 (0.2-0.8); MONOCYTES % 11.3 % (4.4-11.3); NEUTROPHILS % 73.5 % (38.7-80.0); PLATELET COUNT 216 x10e3/uL (140-360); RED BLOOD COUNT 3.68 x10e6/uL (4.3-5.7); RED CELL DISTRIBUTION WIDTH 13.5 % (11.7-14.4)
[2022-11-02 05:54] LABS: ALBUMIN 2.2 g/dL (3.5-5.0); ALBUMIN/GLOBULIN RATIO 0.5 (0.8-2.0); ANION GAP 14.3 mmol/L (8-16); CALCIUM 7.9 mg/dL (8.4-10.2); CREATININE, SERUM 0.84 mg/dL (0.72-1.25); PHOSPHORUS 3.1 MG/DL (2.3-4.7); POTASSIUM 3.3 mmol/L (3.5-5.1)
[2022-11-02] MEDS ORDERED: ALBUTEROL/IPRATROPIUM 3 ML NEB NEB ONE (09:15)
[2022-11-02] MEDS: FAMOTIDINE 20 MG/2 ML VIAL IV SCH ×2 (09:22→17:57)
[2022-11-02] MEDS: PANTOPRAZOLE SOD 40 MG TABEC PO SCH (09:22)
[2022-11-02] MEDS ORDERED: METHYLPREDNISOLONE SOD SUCC 125 MG/2ML VIAL IV ONE ×2 (09:30→18:00)
[2022-11-02] MEDS ORDERED: MULTIVITAMINS- 12 INJECTION 10 ML, FOLIC ACID MDV 1 MG, THIAMINE HCL INJ 100 MG in SODI... IV ONE (14:00)
[2022-11-03] VITALS: BP 122/77
[2022-11-03 00:53] LABS: % IRON SATURATION 10 % (15-50); IRON 22 ug/dL (65-175); TOTAL IRON BINDING CAPACITY 211 ug/dL (261-478); TRANSFERRIN 151 mg/dL (174-364)
[2022-11-03] MEDS: HYDROCODONE/APAP 5MG-325MG TAB PO PRN ×2 (02:04→06:23)
[2022-11-03] MEDS: GUAIFENESIN 600MG/DEXTROMETHORPHAN 30MG TABSR PO SCH ×2 (05:03→17:21)
[2022-11-03] MEDS: PANTOPRAZOLE SOD 40 MG TABEC PO SCH (07:30)
[2022-11-03 07:37] VITALS: BP 130/90
[2022-11-03 08:18] VITALS: BP 130/90
[2022-11-03] MEDS ORDERED: IRON SUCROSE 100 MG in SODIUM CHLORIDE 0.9% 100 ML IV SCH (09:00)
[2022-11-03] MEDS ORDERED: ONDANSETRON HCL 4 MG ORAL DISINTEGRATING TAB PO PRN (09:30)
[2022-11-03] MEDS: FAMOTIDINE 20 MG/2 ML VIAL IV SCH ×2 (09:34→17:21)
[2022-11-03] MEDS ORDERED: SODIUM CHLORIDE 0.9% 250ML 250 ML ONE ×2 (09:51→14:27)
[2022-11-03 12:00] VITALS: BP 125/96
[2022-11-03] MEDS ORDERED: AZITHROMYCIN250 MG PO (12:34)
[2022-11-03] MEDS ORDERED: PANTOPRAZOLE SO40 MG PO (12:34)
[2022-11-03] MEDS ORDERED: FERROUS SULFAT325 MG PO (12:34)
[2022-11-03] MEDS ORDERED: METOCLOPRAMIDE HCL 10 MG/2ML VIAL ONE (12:36)
[2022-11-03] MEDS ORDERED: POVIDONE IODINE 0.05% 0.05 % ML PO ONE (12:36)
[2022-11-03] MEDS ORDERED: LIDOCAINE HCL 2% LOCAL INJ 5 ML SDV VIAL INJ ONE (12:36)
[2022-11-03] MEDS ORDERED: PROPOFOL IV EMULSION 10 MG/ML 20 ML VIAL ONE (12:36)
[2022-11-03] MEDS ORDERED: BENZOCAINE/TETRACAINE/BUTAMBEN AERO SPRAY 56 GM CAN ONE (12:56)
[2022-11-03] MEDS: MULTIVITAMINS- 12 INJECTION 10 ML, FOLIC ACID MDV 1 MG, THIAMINE HCL INJ 100 MG in SODI... IV ONE ×2 (14:00→16:55)
[2022-11-03] MEDS: HYDROMORPHONE 1MG/1ML INJ IV PRN (14:05)
[2022-11-03 16:00] VITALS: BP 132/91
== END 2022-11-03 17:45 | disposition home or self-care (01) | DRG 342 ==
LOC: ER 11:51 → ERHOLD 15:10 → MED/SURG2 16:05 → OBSVTOIN 10-29 14:04
PROVIDERS: ADMIT Internal Medicine; ATTEND Internal Medicine
PROC: 0DTJ4ZZ Resection of Appendix, Percutaneous Endoscopic Approach (ICD-10-PCS; principal; 2022-10-28 08:00)
PROC: 0DB78ZX Excision of Stomach, Pylorus, Via Natural or Artificial Opening Endoscopic, Diagnostic (ICD-10-PCS; 2022-11-03)
PROC: 0DD58ZX Extraction of Esophagus, Via Natural or Artificial Opening Endoscopic, Diagnostic (ICD-10-PCS; 2022-11-03 12:40)
DX: K35.80 Unspecified acute appendicitis (principal); Z68.43 Body mass index [BMI] 50.0-59.9, adult; E66.01 Morbid (severe) obesity due to excess calories; F10.20 Alcohol dependence, uncomplicated; Z20.822 Contact with and (suspected) exposure to COVID-19; R74.01 Elevation of levels of liver transaminase levels; J45.909 Unspecified asthma, uncomplicated; K21.9 Gastro-esophageal reflux disease without esophagitis; Z74.09 Other reduced mobility; D50.9 Iron deficiency anemia, unspecified
CPT/HCPCS: 36415; 43235; 43239; 71045; 74177; 80048; 80053; 81001; 82607; 82746; 82948; 83540; 83605; 83735; 84100; 84466; 85025; 85045; 85610; 85730; 87040; 87086; 87400; 88112; 88304; 88305; 88312; 88342; 93005; 94799; 99252; 99284; G0378; J0330; J0456; J0461; J0690; J1100; J1170; J1756; J1885; J2001; J2060; J2250; J2270; J2405; J2543; J2710; J2765; J2930; J3010; J3411; J7030; J7050; Q9967

== ENCOUNTER 2023-07-24 13:35 | Emergency (ER) | payer OTHER ==
[~2023-07-24] VITALS: Ht 185.4 cm; Wt 179.2 kg
[~2023-07-24 13:35] MED LIST changes: +AZITHROMYCIN250 MG PO; +FERROUS SULFAT325 MG PO; +PANTOPRAZOLE SO40 MG PO
[2023-07-24 14:45] LABS: BASOPHILS % 0.6 % (0.0-1.0); EOSINOPHILS # (AUTO) 0.4 (0.0-0.4); EOSINOPHILS % 5.1 % (0.0-6.0); HEMOGLOBIN 16.3 g/dL (14.0-18.0); LYMPHOCYTES # (AUTO) 1.5 (1.0-3.2); LYMPHOCYTES % 21.8 % (18.0-39.1); MEAN CORPUSCULAR HEMOGLOBIN 31.1 pg (28-32); MEAN CORPUSCULAR HGB CONC 35.4 g/dL (31-35); MEAN CORPUSCULAR VOLUME 87.8 fL (81-99); MONOCYTES # (AUTO) 0.4 (0.2-0.8); NEUTROPHILS # (AUTO) 4.5 (2.1-6.9); NEUTROPHILS % 66.2 % (38.7-80.0); PLATELET COUNT 205 x10e3/uL (140-360); RED BLOOD COUNT 5.24 x10e6/uL (4.3-5.7); RED CELL DISTRIBUTION WIDTH 12.1 % (11.7-14.4)
[2023-07-24 14:56] LABS: INR 0.92; PROTHROMBIN TIME 12.9 seconds (11.9-14.5)
[2023-07-24 14:57] LABS: PARTIAL THROMBOPLASTIN TIME 31.4 seconds (23.8-35.5)
[2023-07-24 15:04] LABS: ALBUMIN 4.3 g/dL (3.5-5.0); ALBUMIN/GLOBULIN RATIO 1.1 (0.8-2.0); ANION GAP 12.2 mmol/L (8-16); CALCIUM 9.7 mg/dL (8.4-10.2); CREATININE, SERUM 0.93 mg/dL (0.72-1.25); MAGNESIUM 2.1 MG/DL (1.3-2.1); POTASSIUM 4.2 mmol/L (3.5-5.1)
[2023-07-24] MEDS ORDERED: IOPAMIDOL 370 MG/ML 100 ML INFUS..BTL INJ ONE (15:18)
[2023-07-24] MEDS ORDERED: DICYCLOMINE HCL20 MG PO (16:25)
[2023-07-24 16:45] VITALS: O2SAT 97
== END 2023-07-24 17:04 | disposition home or self-care (01) ==
LOC: ER 13:45
DX: R10.11 Right upper quadrant pain (principal); M54.50 Low back pain, unspecified; G89.29 Other chronic pain; I10 Essential (primary) hypertension
CPT/HCPCS: 36415; 74177; 80053; 80329; 83690; 83735; 85025; 85610; 85730; 99284; Q9967

== ENCOUNTER 2025-04-11 20:09 | Emergency (ER) | payer OTHER ==
[~2025-04-11] VITALS: Ht 185.4 cm; Wt 190.5 kg
[~2025-04-11 20:09] MED LIST changes: +DICYCLOMINE HCL20 MG PO; +MECLIZINE HCL12.5 MG PO; +ONDANSETRON ODT4 MG PO
[2025-04-11 20:41] VITALS: RESP 20; TEMP 97.6
[2025-04-11] MEDS ORDERED: LABETALOL HCL 5 MG/ML 20ML VIAL IV STA (20:45)
[2025-04-11] MEDS ORDERED: SODIUM CHLORIDE FLUSH 10 ML SYR IV PRN (20:45)
[2025-04-11 20:51] LABS: BASOPHILS % 0.3 % (0.0-1.0); EOSINOPHILS % 3.8 % (0.0-6.0); LYMPHOCYTES % 20.9 % (18.0-39.1); MONOCYTES % 6.3 % (4.4-11.3); NEUTROPHILS % 68.5 % (38.7-80.0); RED CELL DISTRIBUTION WIDTH 14.0 % (11.7-14.4)
[2025-04-11 21:04] LABS: EST GLOMERULAR FILTRATION RATE 117.0 ML/MIN (>=60)
[2025-04-11 21:38] VITALS: BP 161/105; PULSE 81; RESP 20; O2SAT 98
[2025-04-11 21:41] VITALS: PULSE 85
== END 2025-04-11 22:24 | disposition home or self-care (01) ==
LOC: ER 20:31
DX: R07.89 Other chest pain (principal); M54.12 Radiculopathy, cervical region; R53.1 Weakness; R11.0 Nausea; I10 Essential (primary) hypertension; E78.5 Hyperlipidemia, unspecified; F32.A Depression, unspecified; R94.31 Abnormal electrocardiogram [ECG] [EKG]
CPT/HCPCS: 36415; 71045; 80053; 83690; 83880; 84484; 85025; 93005; 94760; 99283; J3490

== ENCOUNTER 2025-06-24 13:45 | Inpatient (IN) | payer OTHER ==
[~2025-06-24] VITALS: Ht 185.4 cm; Wt 190.5 kg
[2025-06-24 14:23] VITALS: TEMP 98
[2025-06-24 14:55] LABS: BASOPHILS % 0.4 % (0.0-1.0); EOSINOPHILS % 5.0 % (0.0-6.0); LYMPHOCYTES % 15.2 % (18.0-39.1); MONOCYTES % 7.2 % (4.4-11.3); NEUTROPHILS % 72.0 % (38.7-80.0); RED CELL DISTRIBUTION WIDTH 13.7 % (11.7-14.4)
[2025-06-24] MEDS: SODIUM CHLORIDE 0.9% 1000ML 1,000 ML IV STA (15:09)
[2025-06-24] MEDS: ONDANSETRON HCL INJ 2MG/ML 2ML 2 MG/ML VIAL IV PRN (15:10)
[2025-06-24] MEDS: FENTANYL CITRATE/PF 100MCG/2 ML INJ IV ONE (15:10)
[2025-06-24] MEDS: DICYCLOMINE HCL 20 MG/2 ML VIAL IM ONE (15:12)
[2025-06-24 15:16] LABS: EST GLOMERULAR FILTRATION RATE 114.0 ML/MIN (>=60)
[2025-06-24] MEDS ORDERED: IOPAMIDOL 370 MG/ML 100 ML INFUS..BTL INJ ONE (15:40)
[2025-06-24 17:00] VITALS: PULSE 90; RESP 19
[2025-06-24] MEDS ORDERED: DOCUSATE SODIUM 100 MG CAP PO PRN (17:30)
[2025-06-24] MEDS ORDERED: ACETAMINOPHEN 325 MG TAB PO PRN (17:30)
[2025-06-24] MEDS ORDERED: DEXTROSE 50% SYRINGE 50 ML IV PRN (17:30)
[2025-06-24] MEDS ORDERED: DIPHENHYDRAMINE HCL 25 MG CAP PO PRN (17:30)
[2025-06-24] MEDS ORDERED: BENZONATATE 100 MG CAP PO PRN (17:30)
[2025-06-24] MEDS ORDERED: ALBUTEROL/IPRATROPIUM 3 ML NEB NEB PRN (17:30)
[2025-06-24] MEDS ORDERED: POTASSIUM CHLORIDE 20 MEQ TAB CR PO PRN (17:30)
[2025-06-24] MEDS ORDERED: SIMETHICONE 80 MG CHEW PO PRN (17:30)
[2025-06-24 18:10] VITALS: BP 180/103; PULSE 83; RESP 20; TEMP 99; O2SAT 100
[2025-06-24] MEDS: Morphine 4mg INJECTION 4 MG/ML INJ IV PRN (18:29)
[2025-06-24] MEDS: HYDRALAZINE HCL 20 MG/ML VIAL IV PRN (18:29)
[2025-06-24 19:23] VITALS: PULSE 86; RESP 18; O2SAT 99
[2025-06-24 20:00] VITALS: BP 170/105; PULSE 93; RESP 18; TEMP 99; O2SAT 98
[2025-06-24] MEDS ORDERED: MELATONIN 5 MG TABLET PO PRN (21:00)
[2025-06-24] MEDS: CITRATE OF MAGNESIA 300ML BOTTLE PO ONE (23:11)
[2025-06-24] MEDS: BISACODYL 5 MG TAB EC PO ONE ×2 (23:11→23:44)
[2025-06-25] VITALS (11 sets, daily range): BP systolic 129–170; BP diastolic 77–103; PULSE 81–103; RESP 18–20; TEMP 97.6–99.1; O2SAT 96–100
[2025-06-25] MEDS: CITRATE OF MAGNESIA 300ML BOTTLE PO ONE ×2 (04:12→08:47)
[2025-06-25 06:11] LABS: BASOPHILS % 0.3 % (0.0-1.0); EOSINOPHILS % 5.9 % (0.0-6.0); LYMPHOCYTES % 13.4 % (18.0-39.1); MONOCYTES % 7.2 % (4.4-11.3); NEUTROPHILS % 72.9 % (38.7-80.0); RED CELL DISTRIBUTION WIDTH 13.8 % (11.7-14.4)
[2025-06-25 06:32] LABS: EST GLOMERULAR FILTRATION RATE 120.0 ML/MIN (>=60)
[2025-06-25] MEDS: BISACODYL 5 MG TAB EC PO ONE (08:43)
[2025-06-25] MEDS: PANTOPRAZOLE SOD 40 MG TABEC PO SCH (08:43)
[2025-06-25] MEDS ORDERED: LIDOCAINE HCL 2% LOCAL INJ 5 ML SDV VIAL INJ ONE (12:13)
[2025-06-25] MEDS ORDERED: PROPOFOL IV EMULSION 50 ML IV ONE (12:13)
[2025-06-25] MEDS ORDERED: MIDAZOLAM HCL 2 MG/2 ML VIAL ONE (12:13)
[2025-06-25] MEDS ORDERED: FENTANYL CITRATE/PF 100MCG/2 ML INJ ONE (12:15)
[2025-06-25] MEDS ORDERED: FAMOTIDINE 20 MG/2 ML VIAL IV ONE (12:27)
[2025-06-25] MEDS ORDERED: ONDANSETRON HCL INJ 2MG/ML 2ML 2 MG/ML VIAL ONE (12:27)
[2025-06-25] MEDS ORDERED: DEXAMETHASONE SOD PHOS INJ 4 MG/ML SDV ONE (12:27)
[2025-06-25] MEDS ORDERED: METOCLOPRAMIDE HCL 10 MG/2ML VIAL ONE (12:28)
[2025-06-25] MEDS ORDERED: PROPOFOL IV EMULSION 10 MG/ML 20 ML VIAL ONE (12:54)
[2025-06-25] MEDS ORDERED: HYOSCYAMINE SULFATE 0.5 MG/ML INJ ONE (13:08)
[2025-06-26] VITALS (9 sets, daily range): BP systolic 133–151; BP diastolic 78–115; PULSE 76–89; RESP 17–18; TEMP 97.6–98.2; O2SAT 96–99
[2025-06-26] MEDS: HYDROCODONE/APAP 5MG-325MG TAB PO PRN (05:25)
[2025-06-26 06:52] LABS: BASOPHILS % 0.3 % (0.0-1.0); EOSINOPHILS % 0.5 % (0.0-6.0); LYMPHOCYTES % 12.3 % (18.0-39.1); MONOCYTES % 7.9 % (4.4-11.3); NEUTROPHILS % 78.3 % (38.7-80.0); RED CELL DISTRIBUTION WIDTH 13.5 % (11.7-14.4)
[2025-06-26 07:18] LABS: HEPATITIS A ANTIBODY IGM (P) Negative
[2025-06-26 07:19] LABS: EST GLOMERULAR FILTRATION RATE 93.0 ML/MIN (>=60)
[2025-06-26 07:19] LABS: HEPATITIS B CORE IGM (P) Negative; HEPATITIS B SURFACE AG (P) Negative
[2025-06-26 07:49] LABS: CHOL/HDL RATIO 4.4 (3.9-4.7)
[2025-06-26 08:10] LABS: LDL CHOLESTEROL 99.0 MG/DL (60-130)
[2025-06-26] MEDS: LOSARTAN POTASSIUM 100 MG TAB PO SCH (08:54)
[2025-06-26] MEDS: KETOROLAC TROMETHAMINE 30 MG/ML VIAL IV SCH (17:47)
[2025-06-26] MEDS: DICYCLOMINE HCL 20 MG TAB PO SCH (17:47)
[2025-06-27] VITALS (11 sets, daily range): BP systolic 120–163; BP diastolic 72–99; PULSE 75–95; RESP 18–20; TEMP 97–98.5; O2SAT 95–100
[2025-06-27] MEDS: POLYETHYLENE GLYCOL 3350 17 GM PACK PO ONE (01:49)
[2025-06-27] MEDS: POLYETHYLENE GLYCOL 3350 17 GM PACK PO SCH (09:19)
[2025-06-27] MEDS: SODIUM CHLORIDE 0.9% 500ML 500 ML ONE (12:12)
[2025-06-27] MEDS: ENOXAPARIN SOD INJ 40 MG/0.4 ML SYR SC SCH (16:07)
[2025-06-28] VITALS (7 sets, daily range): BP systolic 127–171; BP diastolic 77–97; PULSE 71–88; RESP 18–20; TEMP 96.7–98.6; O2SAT 95–98
[2025-06-28] MEDS: DOCUSATE SODIUM LIQD 100 MG/10 ML UDC NG STA (03:40)
[2025-06-28] MEDS: DOCUSATE SODIUM LIQD 100 MG/10 ML UDC NG SCH (08:38)
[2025-06-28 09:04] LABS: EST GLOMERULAR FILTRATION RATE 75.0 ML/MIN (>=60)
[2025-06-28] MEDS ORDERED: DIOVAN160 MG PO (16:12)
== END 2025-06-28 17:15 | disposition home or self-care (01) | DRG 393 ==
LOC: ER 14:19 → ERHOLD 17:06 → MED/SURG3 18:06
PROVIDERS: ADMIT Internal Medicine; ATTEND Internal Medicine
PROC: 0DBM8ZX Excision of Descending Colon, Via Natural or Artificial Opening Endoscopic, Diagnostic (ICD-10-PCS; principal; 2025-06-25 12:26)
DX: D12.4 Benign neoplasm of descending colon (principal); K57.31 Diverticulosis of large intestine without perforation or abscess with bleeding; Z68.43 Body mass index [BMI] 50.0-59.9, adult; K57.92 Diverticulitis of intestine, part unspecified, without perforation or abscess without bleeding; I10 Essential (primary) hypertension; F32.A Depression, unspecified; E78.5 Hyperlipidemia, unspecified; E11.9 Type 2 diabetes mellitus without complications; E66.01 Morbid (severe) obesity due to excess calories; R16.2 Hepatomegaly with splenomegaly, not elsewhere classified; F10.10 Alcohol abuse, uncomplicated; K64.8 Other hemorrhoids; M54.9 Dorsalgia, unspecified; G89.29 Other chronic pain; Z72.0 Tobacco use
CPT/HCPCS: 36415; 45378; 45385; 72131; 74177; 80048; 80053; 80061; 82948; 83036; 83690; 83735; 84443; 85014; 85018; 85025; 87086; 88305; 94799; 99252; 99284; J0360; J1100; J1308; J1650; J1885; J1980; J2003; J2250; J2270; J2405; J2470; J2543; J2765; J7030; J7040; Q9967